=== PATIENT | female | born 2000 | race Caucasian/White ===

== ENCOUNTER 2023-03-30 12:42 | Emergency (ER) | payer OTHER ==
[~2023-03-30] VITALS: Ht 167 cm; Wt 50.0 kg
[2023-03-30 12:50] VITALS: BP 117/79
--- NOTE | 2023-03-30 13:19 | ED General ---
General Chief Complaint: Neurological Problems Stated Complaint: NUMBNESS IN RT FOOT | FEELS OFF Nursing Triage Note: PT AMB TO TRIAGE. PT STATES HAS NUMBNESS IN R LOWER EXT ALETHA FOOT AND UP BACK OF LEG SINCE SUNDAY, LAST PM STARTED HAVING IN UPPER ARM AND HAND STARTED FEELING REALLY WEIRD. PT DENIES SMOKING, TAKES TRISPINTEC FOR BIRTHCONTROL. PT STATES DID HAVE A HEADACHES ON SUNDAY. PT SENT TO ED BY [facility]. PT STATES ANXIOUS WOULD LIKE SOMETHING TO HELP HER CALM DOWN Source of Information: Patient Exam Limitations: No Limitations History of Present Illness Date Seen by Provider: March 30, 2023 Time Seen by Provider: 13:06 Initial Comments 22-year-old female presents to the emergency department today for numbness in her right lower extremity. She states it starts at the plantar surface of her right foot and extends up the posterior surface of her calf and into the lateral aspect of her right thigh. She has had back issues recently and has been seeing a chiropractor. Symptoms present since about January. No loss of bowel or bladder control. No weakness. No known injury. All other systems reviewed and negative except documented per HPI. Voice recognition software was used to help create this chart Allergies and Home Medications Allergies Coded Allergies: No Known Drug Allergies (Unverified , 03/30/23) Patient Home Medication List Home Medication List Reviewed: Yes Review of Systems Review of Systems Constitutional: see HPI Past Mbdvnne-Nhtwdx-Axaesn Hx Patient Social History Tobacco Use?: No Substance use?: No Alcohol Use?: No Pt feels they are or have been: No Immunizations Up To Date Influenza Vaccine Up-to-Date: No; Not Current Past Medical History Surgery/Hospitalization HX: EYE SURG AT 1YO Last Menstrual Period: March 20, 2023 Physical Exam Vital Signs Vital Signs - First Documented 03/30/23 12:50 Temp 36.7 Pulse 92 Resp 16 B/P (MAP) 117/79 (92) Pulse Ox 98 Capillary Refill : Less Than 3 Seconds Height, Weight, BMI Height: '" Weight: lbs. oz. kg; 17.00 BMI Method: General Appearance: No Apparent Distress, WD/WN HEENT: Normal ENT Inspection, Pharynx Normal Neck: Full Range of Motion, Normal Inspection, Non Tender, Supple Respiratory: Chest Non Tender, Lungs Clear, Normal Breath Sounds, No Accessory Muscle Use, No Respiratory Distress Cardiovascular: Regular Rate, Rhythm, No Murmur Back: Normal Inspection, No Vertebral Tenderness Extremity: Normal Capillary Refill, Normal Inspection, Normal Range of Motion, Non Tender, Other (Normal reflexes right lower extremity throughout. 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 Referrals: NO,LOCAL PHYSICIAN (PCP/Family) Primary Care Physician Patient Instructions: Paresthesia (DC) Add. Discharge Instructions: I believe you likely have a vascular or nerve issue in your low back. I recommend you follow-up with your primary doctor to see if physical therapy might be warranted. Return to the emergency department for any severe concerns. Follow-up with your primary doctor for any nonemergent needs All discharge instructions reviewed with patient and/or family. Voiced understanding. ARACELI BUNN DO March 30, 2023 13:19
== END 2023-03-30 13:35 | disposition home or self-care (01) ==
LOC: ER 12:47
DX: R20.0 Anesthesia of skin (principal)
CPT/HCPCS: 99281